=== PATIENT | male | born 1970 | race Hispanic/Latino ===

== ENCOUNTER 2020-02-19 20:36 | Inpatient (IN) | payer BC, OTHER ==
--- NOTE | 2020-02-19 20:47 | Emergency Department Report ---
HPI - General Time Seen by Provider: 02/19/20 20:41 - HPI HPI: Room 23 The patient is a 49-year-old male present with a chief complaint of chest pain and A. fib with RVR. The patient states for the past 2 to 3 days she has had constant substernal chest pressure associated with shortness of breath and nausea without vomiting. EMS was called today and found the patient to be tachycardic with a rate over 200 bpm. EMS contacted [facility] who advised the patient to perform synchronized cardioversion. The patient was given Versed 2.5 mg prior to cardioversion and shocked at 150 J. The patient's rate decreased to sinus tachycardia at 130 bpm. The patient states he feels much better now and just complains of mild shortness of breath and mild pressure in his chest. The patient states he has not taken any anticoagulation ED Past Medical Hx - Past Medical History Previous Medical History?: Yes Hx Hypertension: Yes Hx Congestive Heart Failure: Yes Additional medical history: afib - Surgical History Past Surgical History?: No Additional Surgical History: Right hand surgery - Family History Family history: no significant - Social History Smoking Status: Former Smoker - Medications Home Medications: Home Medications Medication Instructions Recorded Confirmed Last Taken Type Aspirin 325 mg PO DAILY 05/31/14 05/31/14 Unknown History ED Review of Systems ROS: Stated complaint: RESPIRATORY DISTRESS Other details as noted in HPI Constitutional: denies: diaphoresis Eyes: denies: eye pain ENT: denies: throat pain Respiratory: shortness of breath Cardiovascular: chest pain, palpitations Endocrine: no symptoms reported Gastrointestinal: nausea. denies: vomiting Physical Exam - Physical Exam Physical Exam: GENERAL: The patient is well-developed well-nourished male lying on stretcher not appearing to be in acute distress. [] HEENT: Normocephalic. Atraumatic. Extraocular motions are intact. Patient has moist mucous membranes. NECK: Supple. No meningitic signs are noted. There is no adenopathy noted. CHEST/LUNGS: Clear to auscultation. There is no respiratory distress noted. HEART/CARDIOVASCULAR: Regular. There is tachycardia. There is no gallop rub or murmur. ABDOMEN: Abdomen is soft, nontender. Patient has normal bowel sounds. There is no abdominal distention. SKIN: There is no rash. There is no edema. There is no diaphoresis. NEURO: The patient is awake, alert, and oriented. The patient is cooperative. The patient has normal speech MUSCULOSKELETAL: There is no evidence of acute injury. ED Course - Reevaluation(s) Reevaluation #1: 02/19/20 22:11 Called to room as patient began complaining of worsening shortness of breath, chest pain and nausea. Heart rate 110 on monitor. Repeat EKG ordered. Patient given Dilaudid 1 mg and Zofran 8 mg. ED Medical Decision Making - Lab Data Result diagrams: 02/19/20 20:54 02/19/20 20:54 Laboratory Tests 02/19/20 02/19/20 02/19/20 20:54 20:54 20:54 WBC 10.7 RBC 4.79 Hgb 14.6 Hct 44.5 MCV 93 MCH 31 MCHC 33 RDW 14.5 Plt Count 333 Lymph % (Auto) 32.7 [place] % (Auto) 10.0 H Eos % (Auto) 1.6 Baso % (Auto) 0.7 Lymph # 3.5 [place] # 1.1 H Eos # 0.2 Baso # 0.1 Seg Neutrophils % 55.0 Seg Neutrophils # 5.9 PT 15.0 H INR 1.17 H APTT 26.4 Sodium 136 L Potassium 3.7 Chloride 104.8 Carbon Dioxide 15 L Anion Gap 20 BUN 17 Creatinine 1.0 Estimated GFR > 60 BUN/Creatinine Ratio 17 Glucose 141 H Calcium 8.1 L Magnesium 2.00 Total Bilirubin 0.50 AST 59 H ALT 50 Alkaline Phosphatase 121 Total Creatine Kinase 147 CK-MB (CK-2) 4.3 H CK-MB (CK-2) Rel Index 2.9 Troponin T 0.105 H* NT-Pro-B Natriuret Pep 6552 H Total Protein 6.9 Albumin 3.6 L Albumin/Globulin Ratio 1.1 Triglycerides 149 Cholesterol 137 LDL Cholesterol Direct 90 HDL Cholesterol 31 L Cholesterol/HDL Ratio 4.41 TSH Free T4 02/19/20 20:54 WBC RBC Hgb Hct MCV MCH MCHC RDW Plt Count Lymph % (Auto) [place] % (Auto) Eos % (Auto) Baso % (Auto) Lymph # [place] # Eos # Baso # Seg Neutrophils % Seg Neutrophils # PT INR APTT Sodium Potassium Chloride Carbon Dioxide Anion Gap BUN Creatinine Estimated GFR BUN/Creatinine Ratio Glucose Calcium Magnesium Total Bilirubin AST ALT Alkaline Phosphatase Total Creatine Kinase CK-MB (CK-2) CK-MB (CK-2) Rel Index Troponin T NT-Pro-B Natriuret Pep Total Protein Albumin Albumin/Globulin Ratio Triglycerides Cholesterol LDL Cholesterol Direct HDL Cholesterol Cholesterol/HDL Ratio TSH 4.800 H Free T4 1.23 - EKG Data -: EKG Interpreted by Me EKG shows normal: sinus rhythm Rate: tachycardia (125 bpm) - EKG Data When compared to previous EKG there are: previous EKG unavailable Interpretation: other (No ischemic changes seen) - Radiology Data Radiology results: image reviewed (Chest x-ray) interpreted by me: Chest [id number]. No focal infiltrates, no pneumothorax [facility] [address] [place] [address] XRay Report Signed Patient: MURIEL MARY JR MR#: [id number] : 1970 Acct:[id number] Age/Sex: 49 / M ADM Date: 02/19/20 Loc: ED Attending Dr: Ordering Physician: ROSA SILVA MD Date of Service: 02/19/20 Procedure(s): XR chest 1V ap Accession Number(s): [id number] cc: ROSA SILVA MD Fluoro Time In Minutes: CHEST 1 VIEW 8:43 PM INDICATION / CLINICAL INFORMATION: Chest pain. COMPARISON: None available. FINDINGS: SUPPORT DEVICES: None. HEART / MEDIASTINUM: There is mild cardiomegaly and prominence of the central pulmonary vessels. The aorta is normal in caliber. LUNGS / PLEURA: Interstitial lung markings in the perihilar regions are slightly increased. No pneumothorax. ADDITIONAL FINDINGS: No significant additional findings. IMPRESSION: Possible mild congestive heart failure. Signer Name: Edmond Navas MD Signed: 02/19/2020 9:06 PM Workstation Name: [id number] Transcribed By: RT Dictated By: Edmond Navas MD Electronically Authenticated By: Edmond Navas MD Signed Date/Time: 02/19/202105 DD/ 04 TD/TT: - Differential Diagnosis A. fib with RVR, ACS, pericarditis, GERD, CHF exacerbation Critical care attestation.: If time is entered above; I have spent that time in minutes in the direct care of this critically ill patient, excluding procedure time. ED Disposition Clinical Impression: Atrial fibrillation with rapid ventricular response, Chest pain Disposition: 09 OP ADMIT IP TO THIS HOSP Is pt being admited?: Yes Does the pt Need Aspirin: Yes Condition: Serious Instructions: Chest Pain (ED) Referrals: PRIMARY CARE, [Primary Care Provider] - 3-5 Days Time of Disposition: 22:42 (Hospitalist notified (Dr Truong))
--- NOTE | 2020-02-19 21:11 | XRay Report ---
CHEST 1 VIEW 8:43 PM INDICATION / CLINICAL INFORMATION: Chest pain. COMPARISON: None available. FINDINGS: SUPPORT DEVICES: None. HEART / MEDIASTINUM: There is mild cardiomegaly and prominence of the central pulmonary vessels. The aorta is normal in caliber. LUNGS / PLEURA: Interstitial lung markings in the perihilar regions are slightly increased. No pneumo thorax. ADDITIONAL FINDINGS: No significant additional findings. IMPRESSION: Possible mild congestive heart failure. Signer Name: Edmond Navas MD Signed: 02/19/2020 9:06 PM Workstation Name: [id number]
[2020-02-19 21:23] LABS: Basophils # (Auto) 0.1 K/mm3 (0.0-0.1); Basophils % (Auto) 0.7 % (0.0-1.8); Eosinophils # (Auto) 0.2 K/mm3 (0.0-0.4); Eosinophils % (Auto) 1.6 % (0.0-4.3); Hematocrit 44.5 % (35.5-45.6); Hemoglobin 14.6 gm/dl (11.8-15.2); Lymphocytes # (Auto) 3.5 K/mm3 (1.2-5.4); Lymphocytes % (Auto) 32.7 % (13.4-35.0); Mean Corpuscular HGB Conc 33 % (32-34); Mean Corpuscular Volume 93 fl (84-94); Monocytes # (Auto) 1.1 K/mm3 (0.0-0.8); Platelet Count 333 K/mm3 (140-440); Red Blood Count 4.79 M/mm3 (3.65-5.03); Red Cell Distribution Width 14.5 % (13.2-15.2)
[2020-02-19 21:30] LABS: Creatine Kinase MB 4.3 ng/mL (0.0-4.0)
[2020-02-19 21:31] LABS: Alanine Aminotransferase 50 units/L (7-56); Albumin 3.6 g/dL (3.9-5); BUN/Creatinine Ratio 17; Blood Urea Nitrogen 17 mg/dL (9-20); Calcium 8.1 mg/dL (8.4-10.2); Hemolysis Index 11
[2020-02-19] MEDS ORDERED: METOPROLOL TARTRATE 5 MG/5 ML INJ IV ONE (21:48)
[2020-02-19 21:50] LABS: Chol/HDL Ratio 4.41 %; HDL Cholesterol 31 mg/dL (40-59); LDL Cholesterol,Direct 90 mg/dL (50-130)
[2020-02-19] MEDS ORDERED: ASPIRIN 325 MG TAB PO ONE (21:52)
[2020-02-19 22:05] LABS: Free T4 (Free Thyroxine) 1.23 ng/dL (0.76-1.46)
[2020-02-19] MEDS ORDERED: ONDANSETRON 4 MG/2 ML INJ ONE (22:07)
[2020-02-19] MEDS ORDERED: HYDROmorphone 1 MG/1 ML INJ ONE (22:07)
[2020-02-19 22:08] LABS: INR 1.17 (0.87-1.13)
[2020-02-19] MEDS ORDERED: ONDANSETRON 4 MG/2 ML INJ IV ONE (22:08)
[2020-02-19] MEDS ORDERED: HYDROmorphone 1 MG/1 ML INJ IV ONE (22:08)
[2020-02-19 22:09] LABS: Partial Thromboplastin Time 26.4 Sec. (24.2-36.6)
[2020-02-19] MEDS ORDERED: HEPARIN 10,000 UNITS/10 ML VIAL IV ONE ×2 (22:39→23:25)
[2020-02-19] MEDS ORDERED: HEPARIN/ 0.45% NACL DRIP 25,000 UNIT/500 ML BAG IV SCH (23:00)
[2020-02-19 23:05] LABS: Hemoglobin 14.4 gm/dl (11.8-15.2)
[2020-02-19 23:18] LABS: INR 1.2 (0.87-1.13); Partial Thromboplastin Time 25.1 Sec. (24.2-36.6)
[2020-02-19] MEDS ORDERED: NITROGLYCERIN 0.4 MG TAB SUBL SL PRN (23:54)
[2020-02-19] MEDS ORDERED: MORPHINE 2 MG/1 ML INJ IV PRN (23:59)
[2020-02-19] MEDS ORDERED: ACETAMINOPHEN 650 MG RECT SUPP PR PRN (23:59)
[2020-02-20] MEDS ORDERED: ONDANSETRON 4 MG/2 ML INJ IV PRN (00:03)
[2020-02-20 01:49] VITALS: BP 109/79
--- NOTE | 2020-02-20 02:53 | History and Physical Report ---
History of Present Illness Date of examination: 02/19/20 Date of admission: 02/19/20 00:18 Chief complaint: Chest Pain History of present illness: 49 year old male presenting with pressure like substernal chest pain going on for 2 to 3 days and associated with shortness of breath and palpitation with tachycardia. EMS was called and they found patient with A. fibrillation with rate of about 300 beats/minute . EMS gave cardioversion using 150j of energy on advise of [facility] which was noted as reducing the rate down to 130 per emergency room notation.There was no history of nausea and vomiting. Past History Past Medical History: atrial fib, heart failure, hypertension Past Surgical History: Other (HAND SURGERY) Medications and Allergies Allergies Allergy/AdvReac Type Severity Reaction Status Date / Time No Known Allergies Allergy Unverified 05/31/14 19:32 Home Medications Medication Instructions Recorded Confirmed Last Taken Type Unobtainable 02/20/20 02/20/20 Unknown History Active Meds: Active Medications Acetaminophen (Tylenol) 650 mg [place] Q4H PRN PRN Reason: Headache Aspirin (Aspirin) 325 mg PO QDAY [facility] Heparin Sodium/Sodium Chloride (Heparin/ 0.45% Nacl-25,000 Unit/500 Ml) 25,000 unit in 500 mls @ 20 mls/hr IV TITRATE MAYELIN; Protocol Last Admin: 02/19/20 23:27 Dose: 1,000 units/hr, 20 mls/hr Documented by: Morphine Sulfate (Morphine) 2 mg IV Q3H PRN PRN Reason: Pain, Moderate (4-6) Nitroglycerin (Nitro-Bid 2%) 1 inch TP QIDNTG [facility]; Protocol Nitroglycerin (Nitrostat) 0.4 mg SL .Q5MIN PRN PRN Reason: Chest Pain Ondansetron HCl (Zofran) 4 mg IV Q8H PRN PRN Reason: Nausea And Vomiting Review of Systems Constitutional: no weight loss, no weight gain, no fever, no chills, no sweats, no night sweats, no anorexia, no fatigue, no weakness, no malaise, no lethargy Eyes: bilateral: other (NO BILATERAL EYE SYMPTOM) Ears, nose, mouth and throat: no ear pain, no ear discharge, no tinnitis, no decreased hearing, no nose pain, no nasal congestion, no nasal discharge, no sinus pressure, no bleeding gums, no dental pain, no mouth pain, no dysphagia, no hoarseness, no sore throat, no swelling in mouth, no headache Cardiovascular: chest pain, palpitations, rapid/irregular heart beat, shortness of breath, no orthopnea, no syncope, no lightheadedness Respiratory: no cough, no cough with sputum, no excessive sputum, no hemoptysis, no shortness of breath, no dyspnea on exertion, no wheezing, no pleurisy, no pain, no respiratory infections, no home oxygen Gastrointestinal: no abdominal pain, no nausea, no vomiting, no diarrhea, no constipation, no change in bowel habits, no hematemesis, no melena, no hematochezia, no loss of appetite, no early satiety Genitourinary Male: no dysuria, no hematuria, no flank pain, no urinary frequency, no urinary hesitancy, no nocturia, no incontinence, no erectile dysfunction, no testicular pain, no testicular lump Rectal: no pain, no itching Musculoskeletal: no neck stiffness, no neck pain, no shooting arm pain, no arm numbness/tingling, no low back pain, no shooting leg pain, no leg numbness/tingling, no muscle weakness, no muscle cramps, no myalgias, no atrophy Integumentary: no rash, no pruritis, no redness, no sores, no wounds, no jaundice, no boils, no lesions, no darkening of skin, no depigmentation, no acne, no dryness, no striae Neurological: no head injury, no transient paralysis, no paralysis, no weakness, no parathesias, no numbness, no tingling, no seizures, no syncope, no tremors, no vertigo, no headaches, no migraines, no convulsions Psychiatric: no anxiety, no change in sleep habits, no sleep disturbances, no insomnia, no change in appetite, no change in libido, no hopelessness, no anhedonia Endocrine: no cold intolerance, no heat intolerance, no polydipsia, no polyuria, no nocturia, no excessive sweating, no thyroid mass Hematologic/Lymphatic: no easy bruising, no easy bleeding, no lymphadenopathy, no lymphedema Exam - Constitutional Vitals: Temp Pulse Resp BP Pulse Ox 98.4 F 105 H 20 109/79 94 02/19/20 21:00 02/20/20 01:00 02/20/20 01:00 02/20/20 01:00 02/20/20 01:00 General appearance: Present: no acute distress - EENT Eyes: Present: PERRL, EOM intact ENT: hearing intact, clear oral mucosa - Neck Neck: Present: supple, normal ROM. Absent: carotid bruits - Respiratory Respiratory effort: normal - Cardiovascular Rhythm: regular Heart Sounds: Present: S1 & S2. Absent: gallop, systolic murmur, diastolic murmur, click - Extremities Extremities: no ischemia, No edema Peripheral Pulses: within normal limits - Abdominal General gastrointestinal: Present: soft, non-tender, non-distended. Absent: tender, distended, rigid, absent bowel sounds, hepatomegaly, splenomegaly Male genitourinary: Present: deferred - Rectal Rectal Exam: deferred - Integumentary Integumentary: Present: clear, warm, dry. Absent: jaundice, clammy - Musculoskeletal Musculoskeletal: strength equal bilaterally - Psychiatric Psychiatric: appropriate mood/affect - Neurologic Neurologic: CNII-XII intact HEART Score - HEART Score Troponin: Troponin T 0.105 ng/mL (0.00-0.029) H* 02/19/20 20:54 Results - Labs CBC & Chem 7: 02/19/20 22:49 02/19/20 20:54 Labs: Laboratory Last Values WBC 10.7 K/mm3 (4.5-11.0) 02/19/20 20:54 RBC 4.79 M/mm3 (3.65-5.03) 02/19/20 20:54 Hgb 14.4 gm/dl (11.8-15.2) 02/19/20 22:49 Hct 46.0 % (35.5-45.6) H 02/19/20 22:49 MCV 93 fl (84-94) 02/19/20 20:54 MCH 31 pg (28-32) 02/19/20 20:54 MCHC 33 % (32-34) 02/19/20 20:54 RDW 14.5 % (13.2-15.2) 02/19/20 20:54 Plt Count 355 K/mm3 (140-440) 02/19/20 22:49 Lymph % (Auto) 32.7 % (13.4-35.0) 02/19/20 20:54 [place] % (Auto) 10.0 % (0.0-7.3) H 02/19/20 20:54 Eos % (Auto) 1.6 % (0.0-4.3) 02/19/20 20:54 Baso % (Auto) 0.7 % (0.0-1.8) 02/19/20 20:54 Lymph # 3.5 K/mm3 (1.2-5.4) 02/19/20 20:54 [place] # 1.1 K/mm3 (0.0-0.8) H 02/19/20 20:54 Eos # 0.2 K/mm3 (0.0-0.4) 02/19/20 20:54 Baso # 0.1 K/mm3 (0.0-0.1) 02/19/20 20:54 Seg Neutrophils % 55.0 % (40.0-70.0) 02/19/20 20:54 Seg Neutrophils # 5.9 K/mm3 (1.8-7.7) 02/19/20 20:54 PT 15.4 Sec. (12.2-14.9) H 02/19/20 22:49 INR 1.20 (0.87-1.13) H 02/19/20 22:49 APTT 25.1 Sec. (24.2-36.6) 02/19/20 22:49 Sodium 136 mmol/L (137-145) L 02/19/20 20:54 Potassium 3.7 mmol/L (3.6-5.0) 02/19/20 20:54 Chloride 104.8 mmol/L (98-107) 02/19/20 20:54 Carbon Dioxide 15 mmol/L (22-30) L 02/19/20 20:54 Anion Gap 20 mmol/L 02/19/20 20:54 BUN 17 mg/dL (9-20) 02/19/20 20:54 Creatinine 1.0 mg/dL (0.8-1.5) 02/19/20 20:54 Estimated GFR > 60 ml/min 02/19/20 20:54 BUN/Creatinine Ratio 17 % 02/19/20 20:54 Glucose 141 mg/dL (75-100) H 02/19/20 20:54 Calcium 8.1 mg/dL (8.4-10.2) L 02/19/20 20:54 Magnesium 2.00 mg/dL (1.7-2.3) 02/19/20 20:54 Total Bilirubin 0.50 mg/dL (0.1-1.2) 02/19/20 20:54 AST 59 units/L (5-40) H 02/19/20 20:54 ALT 50 units/L (7-56) 02/19/20 20:54 Alkaline Phosphatase 121 units/L (35-129) 02/19/20 20:54 Total Creatine Kinase 147 units/L (55-170) 02/19/20 20:54 CK-MB (CK-2) 4.3 ng/mL (0.0-4.0) H 02/19/20 20:54 CK-MB (CK-2) Rel Index 2.9 (0-4) 02/19/20 20:54 Troponin T 0.105 ng/mL (0.00-0.029) H* 02/19/20 20:54 NT-Pro-B Natriuret Pep 6552 pg/mL (0-450) H 02/19/20 20:54 Total Protein 6.9 g/dL (6.3-8.2) 02/19/20 20:54 Albumin 3.6 g/dL (3.9-5) L 02/19/20 20:54 Albumin/Globulin Ratio 1.1 % 02/19/20 20:54 Triglycerides 149 mg/dL (2-149) 02/19/20 20:54 Cholesterol 137 mg/dL (50-199) 02/19/20 20:54 LDL Cholesterol Direct 90 mg/dL (50-130) 02/19/20 20:54 HDL Cholesterol 31 mg/dL (40-59) L 02/19/20 20:54 Cholesterol/HDL Ratio 4.41 % 02/19/20 20:54 TSH 4.800 mlU/mL (0.270-4.200) H 02/19/20 20:54 Free T4 1.23 ng/dL (0.76-1.46) 02/19/20 20:54 Assessment and Plan - Patient Problems (1) Atrial fibrillation with rapid ventricular response Current Visit: Yes Status: Acute Plan to address problem: 1. I.V Heparin 2. Cardiology consult 3. I.V lopressor PRN for heart rate control (2) NSTEMI (non-ST elevated myocardial infarction) Current Visit: Yes Status: Acute Plan to address problem: 1. NITROPASTE 2. SERIAL CARDIAC ENZYME 3. I.V HEPARIN 4. ASPIRIN PO 5. NITROPASTE 6. TYLENOL PRN HEADACHE 7. OXYGEN BY NASAL CANNULA 8. 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 I.V MORPHIN PRN PAIN 10. I.V ZOFRAN PRN NAUSEA AND VOMITING.
[2020-02-20] MEDS ORDERED: NITROGLYCERIN 2% OINT 1 GM TP SCH (06:00)
[2020-02-20] MEDS ORDERED: ASPIRIN 325 MG TAB PO SCH (10:00)
== END 2020-02-20 02:00 | disposition left against medical advice (07) | DRG 282 ==
LOC: ED 20:36 → 4A 02-20 00:18
PROVIDERS: ADMIT Internal Medicine; ATTEND Internal Medicine
PROC: 5A2204Z Restoration of Cardiac Rhythm, Single (ICD-10-PCS; principal; 2020-02-20)
DX: I21.4 Non-ST elevation (NSTEMI) myocardial infarction (principal); I48.91 Unspecified atrial fibrillation; I11.0 Hypertensive heart disease with heart failure; I50.9 Heart failure, unspecified
CPT/HCPCS: 36415; 71045; 80053; 80061; 82550; 82553; 83735; 83880; 84439; 84443; 84484; 85014; 85018; 85025; 85049; 85610; 85730; 93005; 94760; G0378; J1170; J1644; J2405